=== PATIENT | male | born 1990 | race Caucasian/White ===

== ENCOUNTER 2022-08-05 02:55 | Emergency (ER) | payer MEDICARE, OTHER ==
[~2022-08-05] VITALS: Ht 172.7 cm; Wt 84.1 kg
[2022-08-05 03:43] LABS: ANION GAP 13 mmol/L (8-16); CALCIUM, TOTAL 9.9 mg/dL (8.8-10.5); CARBON DIOXIDE 27 mmol/L (22-29); CHLORIDE 98 mmol/L (98-107); GLUCOSE,RANDOM 100 mg/dL (70-110); POTASSIUM 4.6 mmol/L (3.5-5.1); SODIUM SERUM 138 mmol/L (136-145); UREA NITROGEN, BLOOD 11 mg/dL (7-18)
[2022-08-05 03:44] LABS: GLOMERULAR FILTR. RATE CALC 58 mL/min (>60)
[2022-08-05] MEDS ORDERED: GABA-1216 PO (03:45)
[2022-08-05] MEDS ORDERED: ESCI-8 PO (03:45)
[2022-08-05] MEDS ORDERED: HALO5TAB23 PO (03:45)
[2022-08-05] MEDS ORDERED: TRAZ150T80 PO (03:45)
[2022-08-05] MEDS ORDERED: DIVA-112 PO (03:45)
[2022-08-05 03:47] LABS: BASOPHILS % (AUTO) 0.4 % (0.0-2.0); EOSINOPHILS % (AUTO) 4.3 % (1.0-6.0); HEMATOCRIT 44.7 % (41-53); HEMOGLOBIN 15.2 g/dL (13.5-17.5); LYMPHOCYTES # (AUTO) 1.5 K/uL (1.0-4.8); LYMPHOCYTES % (AUTO) 13.2 % (22.0-44.0); MEAN CORPUSCULAR HEMOGLOBIN 32.6 pg (26.0-34.0); MEAN CORPUSCULAR VOLUME 96 fL (80-100); MONOCYTES % (AUTO) 8.7 % (2.0-9.0); NEUTROPHILS # (AUTO) 8.4 K/uL (1.8-7.7); NEUTROPHILS % (AUTO) 73.4 % (40.0-70.0); PLATELET COUNT (AUTO) 296 K/uL (150-450); RED BLOOD CELL COUNT(AUTO) 4.66 MIL/uL (4.50-5.90); RED CELL DISTRIBUTION WIDTH 12.5 % (11.5-14.5)
[2022-08-05 03:50] LABS: ALANINE AMINOTRANSFERASE 20 U/L (12-78); ALBUMIN 4.8 g/dL (3.4-5.0); ALKALINE PHOSPHATASE 92 U/L (46-116); ASPARTATE AMINOTRANSFERASE 28 U/L (15-37); BILIRUBIN,TOTAL 0.5 mg/dL (0.1-1.0); TOTAL PROTEIN, SERUM 8.5 g/dL (6.4-8.2)
[2022-08-05] MEDS ORDERED: HALOPERIDOL 5 MG TABLET PO ONE (04:15)
[2022-08-05] MEDS ORDERED: LORazepam 1 MG TABLET PO ONE ×2 (04:30→05:30)
[2022-08-05 05:20] VITALS: BP 136/110
== END 2022-08-05 06:24 | disposition home or self-care (01) ==
LOC: EMS 02:58
DX: F41.9 Anxiety disorder, unspecified (principal); F31.9 Bipolar disorder, unspecified; F17.210 Nicotine dependence, cigarettes, uncomplicated; Z98.890 Other specified postprocedural states; Z88.0 Allergy status to penicillin
CPT/HCPCS: 99284; 80053; 85025; 36415; G0480

== ENCOUNTER 2022-08-05 07:15 | Emergency (ER) | payer MEDICARE, OTHER ==
[~2022-08-05] VITALS: Ht 180.3 cm; Wt 81.8 kg
[~2022-08-05 07:15] MED LIST: DIVA-112 PO; ESCI-8 PO; GABA-1216 PO; HALO5TAB23 PO; TRAZ150T80 PO
[2022-08-05 10:25] LABS: BASOPHILS % (AUTO) 0.7 % (0.0-2.0); EOSINOPHILS % (AUTO) 5.7 % (1.0-6.0); HEMOGLOBIN 14.8 g/dL (13.5-17.5); LYMPHOCYTES # (AUTO) 2.8 K/uL (1.0-4.8); LYMPHOCYTES % (AUTO) 28.9 % (22.0-44.0); MEAN CORPUSCULAR HGB CONC 34.4 G/dL (31.0-37.0); MEAN CORPUSCULAR VOLUME 96 fL (80-100); MONOCYTES # (AUTO) 1.2 K/uL (0.1-1.0); MONOCYTES % (AUTO) 12.7 % (2.0-9.0); PLATELET COUNT (AUTO) 271 K/uL (150-450); RED BLOOD CELL COUNT(AUTO) 4.49 MIL/uL (4.50-5.90); RED CELL DISTRIBUTION WIDTH 12.8 % (11.5-14.5)
[2022-08-05 10:34] LABS: ANION GAP 9 mmol/L (8-16); CARBON DIOXIDE 28 mmol/L (22-29); CHLORIDE 101 mmol/L (98-107); CREATININE 1.04 mg/dL (0.60-1.30); GLUCOSE,RANDOM 76 mg/dL (70-110); POTASSIUM 4.2 mmol/L (3.5-5.1); SODIUM SERUM 138 mmol/L (136-145); UREA NITROGEN, BLOOD 13 mg/dL (7-18)
[2022-08-05 10:35] LABS: GLOMERULAR FILTR. RATE CALC > 60 mL/min (>60)
[2022-08-05 10:40] LABS: ALANINE AMINOTRANSFERASE 19 U/L (12-78); ALBUMIN 4.2 g/dL (3.4-5.0); ALKALINE PHOSPHATASE 84 U/L (46-116); ASPARTATE AMINOTRANSFERASE 27 U/L (15-37); BILIRUBIN,TOTAL 0.5 mg/dL (0.1-1.0); TOTAL PROTEIN, SERUM 7.4 g/dL (6.4-8.2)
[2022-08-05 13:19] VITALS: BP 119/69
== END 2022-08-05 13:22 | disposition home or self-care (01) ==
LOC: EMS 07:15
DX: F32.A Depression, unspecified (principal); F41.9 Anxiety disorder, unspecified; F20.9 Schizophrenia, unspecified; F17.210 Nicotine dependence, cigarettes, uncomplicated; Z88.0 Allergy status to penicillin
CPT/HCPCS: 99284; 80053; 85025; 36415; G0480